=== PATIENT | female | born 1980 | race Caucasian/White ===

== ENCOUNTER → 2017-07-13 | Outpatient (CLI) | payer OTHER ==
[~2017-07-13] MED LIST: ASPI81CH PO; BIRTH CONTROL; CEPH500 PO; Esgic Tablet1 EACH PO; IBUP800 PO; LABE100 PO; LABE200 PO; NIFE30ER PO; OXYACE5T PO; Verotin-Gr Cap1 EACH PO
[2017-07-13 15:22] LABS: BASOPHILS ABSOLUTE AUTO 0.01 K/mm3 (0.00-0.23); BASOPHILS PERCENT AUTO 0 % (0-2); EOSINOPHILS PERCENT AUTO 2 % (0-6); Hematocrit 40.6 % (33.0-51.0); Hemoglobin 14.4 g/dL (11.5-16.0); IMMATURE GRAN ABSOLUTE AUTO 0.01 K/mm3 (0.00-0.10); IMMATURE GRAN PERCENT AUTO 0 % (0-1); LYMPHOCYTES ABSOLUTE AUTO 1.53 K/mm3 (0.84-5.20); LYMPHOCYTES PERCENT AUTO 28 % (21-46); MONOCYTES ABSOLUTE AUTO 0.48 K/mm3 (0.16-1.47); MONOCYTES PERCENT AUTO 9 % (4-13); Mean Corpuscular HGB 31.4 pg (26.0-34.0); Mean Corpuscular HGB Conc 35.5 g/dL (31.5-36.5); Mean Corpuscular Volume 89 fL (80-100); Mean Platelet Volume 9.9 fL (9.1-12.4); NEUTROPHILS ABSOLUTE AUTO 3.37 K/mm3 (1.96-9.15); NEUTROPHILS PERCENT AUTO 61 % (41-73); Platelet Count 248 K/mm3 (150-400); RDW Coefficient Variation 12.7 % (11.7-14.2); RDW Standard Deviation 40.9 fL (35.1-46.3); Red Blood Cell Count 4.58 M/mm3 (3.80-5.20)
[2017-07-13 15:44] LABS: Alanine Aminotransfer (ALT/SGP 23 U/L (12-78); Albumin, Blood 4.2 g/dL (3.4-5.0); Albumin/Globulin Ratio 1.2 (0.8-1.8); Alk Phos 56 U/L (40-126); Anion Gap 10 mmol/L (6-16); Aspartate Aminotrans (AST/SGOT 14 U/L (12-37); Bilirubin, Total 1.1 mg/dL (0.1-1.0); Blood Urea Nitrogen 17 mg/dL (8-24); Bun/Creatinine Ratio 18.7 (12.0-20.0); CO2, Blood 27 mmol/L (21-32); Chloride, Blood 105 mmol/L (98-108); Creatinine, Blood 0.91 mg/dL (0.40-1.00); Globulin, Blood 3.5 g/dL (2.2-4.0); Glomerular Filtration Rate >60 (60-); Glucose, Blood 105 mg/dL (70-99); Potassium, Blood 4.1 mmol/L (3.5-5.5); Sodium, Blood 142 mmol/L (136-145); Thyroid Stimulating Hormone 1.419 uIU/mL (0.360-4.800); Total Protein, Blood 7.7 g/dL (6.4-8.2)
== END ==
LOC: LAB EV 15:17 → LAB SHORT 15:17
PROVIDERS: Physician Assistant
DX: R53.83 Other fatigue (principal)
CPT/HCPCS: 80053; 84443; 85025

== ENCOUNTER 2018-07-20 11:58 | Inpatient (IN) | payer OTHER ==
[~2018-07-20] VITALS: Ht 167.6 cm; Wt 74.2 kg
[2018-07-20 12:39] LABS: BASOPHILS ABSOLUTE AUTO 0.02 K/mm3 (0.00-0.23); BASOPHILS PERCENT AUTO 0 % (0-2); EOSINOPHILS ABSOLUTE AUTO 0.07 K/mm3 (0.00-0.68); EOSINOPHILS PERCENT AUTO 1 % (0-6); Hematocrit 37.8 % (33.0-51.0); IMMATURE GRAN ABSOLUTE AUTO 0.03 K/mm3 (0.00-0.10); IMMATURE GRAN PERCENT AUTO 0 % (0-1); LYMPHOCYTES ABSOLUTE AUTO 1.34 K/mm3 (0.84-5.20); LYMPHOCYTES PERCENT AUTO 19 % (21-46); MONOCYTES ABSOLUTE AUTO 0.47 K/mm3 (0.16-1.47); MONOCYTES PERCENT AUTO 7 % (4-13); Mean Corpuscular HGB 32.3 pg (26.0-34.0); Mean Corpuscular HGB Conc 34.4 g/dL (31.5-36.5); Mean Corpuscular Volume 94 fL (80-100); Mean Platelet Volume 11.8 fL (9.1-12.4); NEUTROPHILS ABSOLUTE AUTO 5.15 K/mm3 (1.96-9.15); NEUTROPHILS PERCENT AUTO 73 % (41-73); Platelet Count 170 K/mm3 (150-400); RDW Standard Deviation 44.7 fL (35.1-46.3); Red Blood Cell Count 4.02 M/mm3 (3.80-5.20); White Blood Cell Count 7.08 K/mm3 (4.00-11.30)
[2018-07-20] MEDS ORDERED: LABE200 PO (12:55)
[2018-07-20] MEDS ORDERED: BAYER CHEWABLE81 MG PO (12:56)
[2018-07-20 13:03] LABS: Alanine Aminotransfer (ALT/SGP 17 U/L (12-78); Albumin, Blood 2.9 g/dL (3.4-5.0); Albumin/Globulin Ratio 0.8 (0.8-1.8); Alk Phos 74 U/L (50-136); Anion Gap 8 mmol/L (6-16); Aspartate Aminotrans (AST/SGOT 18 U/L (12-37); Bilirubin, Total 0.5 mg/dL (0.1-1.0); Blood Urea Nitrogen 10 mg/dL (8-24); Bun/Creatinine Ratio 15.3 (12.0-20.0); CO2, Blood 21 mmol/L (21-32); Calcium, Blood 9.2 mg/dL (8.5-10.1); Chloride, Blood 108 mmol/L (98-108); Creatinine, Blood 0.65 mg/dL (0.40-1.00); Globulin, Blood 3.7 g/dL (2.2-4.0); Glomerular Filtration Rate >60 (60-); Glucose, Blood 80 mg/dL (70-99); Potassium, Blood 4.4 mmol/L (3.5-5.5); Sodium, Blood 137 mmol/L (136-145); Total Protein, Blood 6.6 g/dL (6.4-8.2)
[2018-07-20 15:52] LABS: Protein, Urine Quantitative 54.9 mg/dL (0.0-11.9)
--- NOTE | 2018-07-20 16:07 | NUR ---
PT SLEEPING. NO COMPLAINTS. UPDATED ON LABS AND ORDER TO START STEROIDS. PT VERBALIZES UNDERSTANDING.
--- NOTE | 2018-07-20 17:14 | NUR ---
NO COMPLAINTS. SITTING UP IN BED WATCHING TV. FIRST BETAMETHASONE GIVEN. ALL QUESTIONS ANSWERED.
--- NOTE | 2018-07-20 18:57 | NUR ---
JEROMY AT BEDSIDE. NO NEW ORDERS RECEIVED.
[2018-07-21 06:14] LABS: BASOPHILS ABSOLUTE AUTO 0.01 K/mm3 (0.00-0.23); BASOPHILS PERCENT AUTO 0 % (0-2); EOSINOPHILS PERCENT AUTO 0 % (0-6); Hematocrit 37.9 % (33.0-51.0); Hemoglobin 12.9 g/dL (11.5-16.0); IMMATURE GRAN ABSOLUTE AUTO 0.06 K/mm3 (0.00-0.10); IMMATURE GRAN PERCENT AUTO 1 % (0-1); LYMPHOCYTES ABSOLUTE AUTO 1.18 K/mm3 (0.84-5.20); LYMPHOCYTES PERCENT AUTO 13 % (21-46); MONOCYTES ABSOLUTE AUTO 0.15 K/mm3 (0.16-1.47); MONOCYTES PERCENT AUTO 2 % (4-13); Mean Corpuscular HGB 31.7 pg (26.0-34.0); Mean Corpuscular Volume 93 fL (80-100); Mean Platelet Volume 11.6 fL (9.1-12.4); NEUTROPHILS ABSOLUTE AUTO 7.98 K/mm3 (1.96-9.15); NEUTROPHILS PERCENT AUTO 85 % (41-73); Platelet Count 170 K/mm3 (150-400); RDW Standard Deviation 44.1 fL (35.1-46.3); Red Blood Cell Count 4.07 M/mm3 (3.80-5.20); White Blood Cell Count 9.38 K/mm3 (4.00-11.30)
[2018-07-21 06:32] LABS: Alanine Aminotransfer (ALT/SGP 18 U/L (12-78); Albumin, Blood 2.7 g/dL (3.4-5.0); Albumin/Globulin Ratio 0.7 (0.8-1.8); Alk Phos 70 U/L (50-136); Anion Gap 13 mmol/L (6-16); Aspartate Aminotrans (AST/SGOT 16 U/L (12-37); Bilirubin, Total 0.6 mg/dL (0.1-1.0); Blood Urea Nitrogen 15 mg/dL (8-24); Bun/Creatinine Ratio 23.7 (12.0-20.0); CO2, Blood 18 mmol/L (21-32); Calcium, Blood 8.9 mg/dL (8.5-10.1); Chloride, Blood 106 mmol/L (98-108); Creatinine, Blood 0.63 mg/dL (0.40-1.00); Globulin, Blood 3.7 g/dL (2.2-4.0); Glomerular Filtration Rate >60 (60-); Glucose, Blood 108 mg/dL (70-99); Potassium, Blood 4.2 mmol/L (3.5-5.5); Sodium, Blood 137 mmol/L (136-145); Total Protein, Blood 6.4 g/dL (6.4-8.2)
--- NOTE | 2018-07-21 14:37 | NUR ---
PT WEIGHT 07/21/18 AT 0800 IS 73.6 KG
--- NOTE | 2018-07-21 20:14 | NUR ---
SANDWICH GIVEN TO PT PER RN. TRASH & DIRTY LINEN REMOVED FROM ROOM.
--- NOTE | 2018-07-22 00:30 | NUR ---
Pt given Ambien and instructed to call when she gewts up to bathroom. VS will be taken when she wakes up/ when she calls. Pt sleeping upon rounding.
[2018-07-22 06:08] LABS: BASOPHILS ABSOLUTE AUTO 0.01 K/mm3 (0.00-0.23); BASOPHILS PERCENT AUTO 0 % (0-2); EOSINOPHILS PERCENT AUTO 0 % (0-6); Hematocrit 37.2 % (33.0-51.0); Hemoglobin 12.5 g/dL (11.5-16.0); IMMATURE GRAN ABSOLUTE AUTO 0.16 K/mm3 (0.00-0.10); IMMATURE GRAN PERCENT AUTO 2 % (0-1); LYMPHOCYTES ABSOLUTE AUTO 1.29 K/mm3 (0.84-5.20); LYMPHOCYTES PERCENT AUTO 13 % (21-46); MONOCYTES ABSOLUTE AUTO 0.28 K/mm3 (0.16-1.47); MONOCYTES PERCENT AUTO 3 % (4-13); Mean Corpuscular HGB 31.6 pg (26.0-34.0); Mean Corpuscular HGB Conc 33.6 g/dL (31.5-36.5); Mean Corpuscular Volume 94 fL (80-100); Mean Platelet Volume 11.5 fL (9.1-12.4); NEUTROPHILS ABSOLUTE AUTO 7.93 K/mm3 (1.96-9.15); NEUTROPHILS PERCENT AUTO 82 % (41-73); Platelet Count 185 K/mm3 (150-400); RDW Standard Deviation 44.5 fL (35.1-46.3); Red Blood Cell Count 3.96 M/mm3 (3.80-5.20); White Blood Cell Count 9.67 K/mm3 (4.00-11.30)
[2018-07-22 06:26] LABS: Alanine Aminotransfer (ALT/SGP 17 U/L (12-78); Albumin, Blood 2.8 g/dL (3.4-5.0); Albumin/Globulin Ratio 0.8 (0.8-1.8); Alk Phos 66 U/L (50-136); Anion Gap 11 mmol/L (6-16); Aspartate Aminotrans (AST/SGOT 12 U/L (12-37); Bilirubin, Total 0.5 mg/dL (0.1-1.0); Blood Urea Nitrogen 15 mg/dL (8-24); Bun/Creatinine Ratio 23.1 (12.0-20.0); CO2, Blood 19 mmol/L (21-32); Calcium, Blood 8.8 mg/dL (8.5-10.1); Chloride, Blood 107 mmol/L (98-108); Creatinine, Blood 0.65 mg/dL (0.40-1.00); Globulin, Blood 3.4 g/dL (2.2-4.0); Glomerular Filtration Rate >60 (60-); Glucose, Blood 110 mg/dL (70-99); Potassium, Blood 4.3 mmol/L (3.5-5.5); Sodium, Blood 137 mmol/L (136-145); Total Protein, Blood 6.2 g/dL (6.4-8.2)
--- NOTE | 2018-07-22 06:37 | NUR ---
Pt. instructed to tell RN to call if she wakes up and goes to the bathroom to get BP. pt only called 1x in the night. RN rounded q2 hours with pt sleeping heavily. no breathrough labetalol needed throughout shift. Pt denies any headache throughout night or end of shift. Slept very well. RN in to get VS, and pt very droswy and sleepy while talking to RN after ambien. no complaints at end of shift. vss. intake of 930 po fluids. encouraged to drink more fluids while awake.
--- NOTE | 2018-07-22 15:22 | NUR ---
PT WAS UP TO SHOWER ABOUT 1100, LINENS CHANGED, HOUSEKEEPING IN TO CLEAN ROOM AFTER PT BACK TO BED.VITALS DONE AT 1230, THEN PT REQUESTED TO SLEEP, WILL CALL WHEN AWAKE. PT COMPLIANT WITH CARE.
--- NOTE | 2018-07-22 16:38 | NUR ---
PT CALLED AND HAD WOKE UP FROM HER NAP, C/O HEADACHE, CHEST PAIN, INDIGESTION PAIN 08/07. BP INCREASING. [facility] CNM CALLED ORDER TO CHANGE DOSING OF LABETLOL TO : 0800 (300MG), 1600 (200MG) 2000 (300MG). I HAVE ALREADY GIVEN THE BREAKTHROUGH LABETLOL 100MG, SO I WILL GIVE ANOTHER 100MG NOW. PT ON BP Q10 MIN. SP02 97 %, [facility] CNM DECLINED EKG.
--- NOTE | 2018-07-22 18:44 | NUR ---
VSS, PT RESTING. DISCUSSED NEW MEDICATION SCHEDULE, PT VERBALIZES UNDERSTANDING. REPORT TO ONCOMING SHIFT, NO ACUTE CHANGES.
--- NOTE | 2018-07-23 00:08 | NUR ---
SBAR TO Evelia DIAZ CNM REGARDING LABILE PRESSURES. CNM AWARE OF SYSTOLIC PRESSURE OVER 150 AFTER GIVING 10 MG ABIEN 2 HRS PRIOR & DIASTOLIC BEING 70S-80S. ALSO NOTIFIED OF HEART RATE @ 55 BPM. NEW ORDERS TO HOLD LABETALOL AT THIS TIME, TAKE PT OFF BP MONITORING AND HAVE PT CALL WHEN SHE GETS UP TO USE BATHROOM FOR FURTHER MONITORING/REASSESSMENT OF BP.
--- NOTE | 2018-07-23 03:17 | NUR ---
pt remains sleepig heavily at this time.
[2018-07-23 12:33] LABS: White Blood Cell Count 7.68 K/mm3 (4.00-11.30)
[2018-07-23 12:34] LABS: BASOPHILS PERCENT AUTO 0 % (0-2); EOSINOPHILS ABSOLUTE AUTO 0.01 K/mm3 (0.00-0.68); EOSINOPHILS PERCENT AUTO 0 % (0-6); IMMATURE GRAN ABSOLUTE AUTO 0.08 K/mm3 (0.00-0.10); IMMATURE GRAN PERCENT AUTO 1 % (0-1); LYMPHOCYTES ABSOLUTE AUTO 1.37 K/mm3 (0.84-5.20); LYMPHOCYTES PERCENT AUTO 18 % (21-46); MONOCYTES ABSOLUTE AUTO 0.51 K/mm3 (0.16-1.47); MONOCYTES PERCENT AUTO 7 % (4-13); Mean Corpuscular HGB 31.7 pg (26.0-34.0); Mean Corpuscular HGB Conc 33.3 g/dL (31.5-36.5); Mean Corpuscular Volume 95 fL (80-100); Mean Platelet Volume 11.7 fL (9.1-12.4); NEUTROPHILS ABSOLUTE AUTO 5.71 K/mm3 (1.96-9.15); NEUTROPHILS PERCENT AUTO 75 % (41-73); Platelet Count 179 K/mm3 (150-400); RDW Coefficient Variation 13.1 % (11.7-14.2); RDW Standard Deviation 44.7 fL (35.1-46.3); Red Blood Cell Count 3.78 M/mm3 (3.80-5.20)
[2018-07-23 12:54] LABS: Alanine Aminotransfer (ALT/SGP 21 U/L (12-78); Albumin, Blood 2.7 g/dL (3.4-5.0); Albumin/Globulin Ratio 0.8 (0.8-1.8); Alk Phos 66 U/L (50-136); Anion Gap 11 mmol/L (6-16); Aspartate Aminotrans (AST/SGOT 21 U/L (12-37); Bilirubin, Total 0.4 mg/dL (0.1-1.0); Blood Urea Nitrogen 17 mg/dL (8-24); Bun/Creatinine Ratio 24.8 (12.0-20.0); CO2, Blood 20 mmol/L (21-32); Calcium, Blood 8.5 mg/dL (8.5-10.1); Chloride, Blood 106 mmol/L (98-108); Creatinine, Blood 0.69 mg/dL (0.40-1.00); Globulin, Blood 3.4 g/dL (2.2-4.0); Glomerular Filtration Rate >60 (60-); Glucose, Blood 113 mg/dL (70-99); Potassium, Blood 3.7 mmol/L (3.5-5.5); Sodium, Blood 137 mmol/L (136-145); Total Protein, Blood 6.1 g/dL (6.4-8.2)
--- NOTE | 2018-07-23 13:23 | NUR ---
assumed care magnesium loading dose started
--- NOTE | 2018-07-23 13:47 | NUR ---
CONSENTS SIGNED FOR TRANSPORT
--- NOTE | 2018-07-23 14:06 | NUR ---
TRANSPORT TEAM HERE
== END 2018-07-23 14:20 | disposition home or self-care (01) | DRG 833 ==
LOC: BC 11:58 → OBS 11:58 → BC 12:11
PROVIDERS: Advanced Practice Midwife; ADMIT Nurse Practitioner Obstetrics & Gynecology
DX: O11.3 Pre-existing hypertension with pre-eclampsia, third trimester (principal); Z3A.34 34 weeks gestation of pregnancy; Z79.82 Long term (current) use of aspirin
CPT/HCPCS: 36415; 80053; 84156; 85025; 96372; G0378; J0610; J0702; J3360; J3475; J7120

== ENCOUNTER 2020-07-18 07:39 | Day surgery (SDC) | payer OTHER ==
[~2020-07-18] VITALS: Ht 167.6 cm; Wt 98.4 kg
[~2020-07-18 07:39] MED LIST changes: +BAYER CHEWABLE81 MG PO; +Inderal 20 mg T20 MG PO
[2020-07-18] MEDS ORDERED: LABE100 PO (08:26)
[2020-07-18] MEDS ORDERED: MULTIPLE VITAM1 EACH PO (08:26)
[2020-07-18] MEDS ORDERED: IBU800 M1 PO (08:27)
--- NOTE | 2020-07-18 10:07 | NUR ---
07/18/20 Daniele Eddy ABDOMINAL PREP COMPLETED BY [facility].NATASHA.
== END 2020-07-18 11:45 | disposition home or self-care (01) ==
LOC: ORSCSDS 07:39
PROVIDERS: Obstetrics & Gynecology
PROC: 0U5B8ZZ Destruction of Endometrium, Via Natural or Artificial Opening Endoscopic (ICD-10-PCS; principal; 2020-07-18 09:00)
PROC: 0UT74ZZ Resection of Bilateral Fallopian Tubes, Percutaneous Endoscopic Approach (ICD-10-PCS; principal; 2020-07-18 09:00)
PROC: 0UDB8ZX Extraction of Endometrium, Via Natural or Artificial Opening Endoscopic, Diagnostic (ICD-10-PCS; principal; 2020-07-18 09:00)
DX: N92.1 Excessive and frequent menstruation with irregular cycle (principal); N93.8 Other specified abnormal uterine and vaginal bleeding; N94.6 Dysmenorrhea, unspecified; Z30.2 Encounter for sterilization; N83.8 Other noninflammatory disorders of ovary, fallopian tube and broad ligament; I10 Essential (primary) hypertension; Z79.899 Other long term (current) drug therapy
CPT/HCPCS: 88302; 88305; A9270; J0171; J0690; J1100; J1885; J2405; J2704; J3010; J7120

== ENCOUNTER 2021-02-05 16:35 | Emergency (ER) | payer OTHER ==
[~2021-02-05] VITALS: Ht 167.6 cm; Wt 65.8 kg
[~2021-02-05 16:35] MED LIST changes: +IBU800 M1 PO; +MULTIPLE VITAM1 EACH PO
[2021-02-05 17:39] LABS: BASOPHILS ABSOLUTE AUTO 0.03 K/mm3 (0.00-0.23); BASOPHILS PERCENT AUTO 1 % (0-2); EOSINOPHILS PERCENT AUTO 4 % (0-6); Hematocrit 39.2 % (33.0-51.0); Hemoglobin 13.3 g/dL (11.5-16.0); IMMATURE GRAN ABSOLUTE AUTO 0.01 K/mm3 (0.00-0.10); IMMATURE GRAN PERCENT AUTO 0 % (0-1); LYMPHOCYTES ABSOLUTE AUTO 1.43 K/mm3 (0.84-5.20); LYMPHOCYTES PERCENT AUTO 31 % (21-46); MONOCYTES ABSOLUTE AUTO 0.26 K/mm3 (0.16-1.47); MONOCYTES PERCENT AUTO 6 % (4-13); Mean Corpuscular HGB 30.7 pg (26.0-34.0); Mean Corpuscular HGB Conc 33.9 g/dL (31.5-36.5); Mean Corpuscular Volume 91 fL (80-100); Mean Platelet Volume 9.7 fL (9.1-12.4); NEUTROPHILS ABSOLUTE AUTO 2.76 K/mm3 (1.96-9.15); NEUTROPHILS PERCENT AUTO 59 % (41-73); Platelet Count 251 K/mm3 (150-400); RDW Coefficient Variation 12.4 % (11.7-14.2); RDW Standard Deviation 40.8 fL (35.1-46.3); Red Blood Cell Count 4.33 M/mm3 (3.80-5.20); White Blood Cell Count 4.69 K/mm3 (4.00-11.30)
[2021-02-05 18:06] LABS: Alanine Aminotransfer (ALT/SGP 21 U/L (12-78); Albumin, Blood 4.2 g/dL (3.4-5.0); Albumin/Globulin Ratio 1.3 (0.8-1.8); Alk Phos 44 U/L (50-136); Anion Gap 4 mmol/L (6-16); Aspartate Aminotrans (AST/SGOT 14 U/L (12-37); Bilirubin, Total 0.8 mg/dL (0.1-1.0); Blood Urea Nitrogen 13 mg/dL (8-24); Bun/Creatinine Ratio 17.9 (12.0-20.0); CO2, Blood 26 mmol/L (21-32); Calcium, Blood 8.8 mg/dL (8.5-10.1); Chloride, Blood 110 mmol/L (98-108); Creatinine, Blood 0.73 mg/dL (0.40-1.00); Globulin, Blood 3.2 g/dL (2.2-4.0); Glomerular Filtration Rate >60 (60-); Glucose, Blood 96 mg/dL (70-99); Potassium, Blood 3.8 mmol/L (3.5-5.5); Sodium, Blood 140 mmol/L (136-145); Total Protein, Blood 7.4 g/dL (6.4-8.2)
[2021-02-05] MEDS ORDERED: CYCL10 PO (20:16)
[2021-02-05] MEDS ORDERED: LIDO700A20 TOP (20:16)
== END 2021-02-05 20:34 | disposition home or self-care (01) ==
LOC: ER 16:35
PROVIDERS: Physician Assistant
DX: R51.9 Headache, unspecified (principal); M54.2 Cervicalgia; I10 Essential (primary) hypertension; D64.9 Anemia, unspecified; Z88.8 Allergy status to other drugs, medicaments and biological substances; Z79.899 Other long term (current) drug therapy
CPT/HCPCS: 36415; 70450; 72125; 80053; 85025; 93005; 93010; 99284-25; A9270

== ENCOUNTER 2023-12-08 06:43 | Day surgery (SDC) | payer OTHER ==
[2023-12-08] VITALS (13 sets, daily range): BP systolic 127–148; BP diastolic 81–103
[~2023-12-08] VITALS: Ht 167.6 cm; Wt 66.6 kg
[~2023-12-08 06:43] MED LIST changes: +CYCL10 PO; +LIDO700A20 TOP
[2023-12-08] MEDS ORDERED: CeFAZolin Sodium 2,000 MG in NS 100 ML IV SCH ×2 (06:45→16:00)
[2023-12-08] MEDS ORDERED: Lactated Ringer's 1,000 ML IV SCH ×2 (06:45→11:10)
[2023-12-08] MEDS ORDERED: OLME5TAB PO (07:11)
[2023-12-08] MEDS ORDERED: propofoL 20 ML IV ONE (07:42)
[2023-12-08] MEDS ORDERED: FentaNYL Citrate 50 MCG/ML 2 ML Injection ONE ×2 (07:42→11:36)
[2023-12-08] MEDS ORDERED: Sugammadex Sodium 200 MG/2ML SDV (100 MG/ML) ONE (07:43)
[2023-12-08] MEDS ORDERED: Rocuronium Bromide 10 MG/ML 5ML Injection IV ONE ×2 (07:43→09:16)
[2023-12-08] MEDS ORDERED: Ondansetron HCl 2 MG / ML 2ML Vial ONE (07:43)
[2023-12-08] MEDS ORDERED: Lidocaine HCl 2% 20 ML MDV ONE (07:43)
[2023-12-08] MEDS ORDERED: Dexamethasone Sod Phos 10 MG/ML 1ML VIAL ONE (07:43)
[2023-12-08] MEDS ORDERED: Bupivacaine 0.5% HCl 5 MG/ML 30MLVIAL ONE (07:54)
[2023-12-08] MEDS ORDERED: Midazolam HCl 1MG / ML 2ML Vial IV ONE (07:55)
[2023-12-08] MEDS ORDERED: Scopolamine Hydrobromide Patch TOP ONE (07:55)
[2023-12-08] MEDS ORDERED: Midazolam HCl 1MG / ML 2ML Vial ONE (08:01)
[2023-12-08] MEDS ORDERED: Scopolamine Hydrobromide Patch ONE (08:01)
[2023-12-08] MEDS ORDERED: Ketorolac Tromethamine 30mg Vial ONE (09:17)
[2023-12-08] MEDS ORDERED: HYDROmorphone HCl/Pf 1MG SYR ONE (09:56)
[2023-12-08] MEDS ORDERED: Cyclobenzaprine HCl 10 MG Tab PO PRN (11:00)
[2023-12-08] MEDS ORDERED: Ondansetron HCl 2 MG / ML 2ML Vial IV PRN (11:10)
[2023-12-08] MEDS ORDERED: Promethazine HCl 25 MG Tab PO PRN (11:15)
[2023-12-08] MEDS ORDERED: Simethicone 80 MG Chew PO PRN (11:15)
[2023-12-08] MEDS ORDERED: Promethazine HCl 12.5 MG Supp PR PRN (11:15)
[2023-12-08] MEDS ORDERED: OxyCODONE 5 mg/Acetamin 325 mg TABLET PO PRN (11:15)
[2023-12-08] MEDS ORDERED: Naloxone HCl 0.4MG / ML 1ML Vial IV PRN (11:15)
[2023-12-08] MEDS ORDERED: HYDROmorphone HCl/Pf 1MG SYR IV PRN (11:15)
[2023-12-08] MEDS ORDERED: Ondansetron 4 MG TAB PO PRN (11:15)
[2023-12-08] MEDS ORDERED: FLU VACC TS2024-25(6MOS UP)/PF 45 MCG/0.5 ML SYRINGE IM ONE (11:15)
[2023-12-08] MEDS ORDERED: Ketorolac Tromethamine 30mg Vial IV PRN (11:35)
--- NOTE | 2023-12-08 14:40 | NUR ---
rept to Aisha surgical assistant certified floor nurse
--- NOTE | 2023-12-08 15:27 | NUR ---
PT ARRIVED TO RM 226 AT APPROXIMATELY 1515. PAIN MANAGED AT THIS TIME. INCISION SITES WNL.
[2023-12-08] MEDS ORDERED: Percocet 5-3251 EACH PO (17:25)
[2023-12-08] MEDS ORDERED: PROM25 PO (17:26)
[2023-12-08] MEDS ORDERED: SIME80CH PO (17:28)
--- NOTE | 2023-12-08 18:15 | NUR ---
SHIFT SUMMARY PT IS POD#0 FROM [facility] WITH DR. RAYGOZA. PAIN HAS BEEN DIFFICULT TO MANAGE. PT REPORTS PERCOCET AND TORADOL HAVE NOT BEEN EFFECTIVE FOR PAIN, PT RATED HER PAIN AT 6-7/10 BEFORE PERCOCET AND TORADOL; 1 HOUR AFTER ADMINISTRATION PAIN WAS SLIGHTLY INCREASED, PT RATED PAIN AT 7/10. DILAUDID HAS BEEN EFFECTIVE FOR PAIN MANAGEMENT. PT HAS BEEN ABLE TO VOID, TOLERATE PO, AND AMBULATE. VSS. PT USES CALL LIGHT APPROPRIATELY. ABD BINDER IN PLACE FOR COMFORT. PT RESTING IN BED AT THIS TIME.
[2023-12-09 00:07] VITALS: BP 118/76
[2023-12-09 05:53] VITALS: BP 106/77
--- NOTE | 2023-12-09 06:42 | NUR ---
SHIFT SUMMARY VSS, UP TO BR WITH JUST STANDBY ASSIST. DID NOT REQUIRE ANY IV PAIN MEDS. VOIDING. EATING REGULAR DIET.
[2023-12-09 07:38] VITALS: BP 124/86
[2023-12-09 08:47] LABS: BASOPHILS ABSOLUTE AUTO 0.01 K/mm3 (0.00-0.23); BASOPHILS PERCENT AUTO 0 % (0-2); EOSINOPHILS ABSOLUTE AUTO 0.04 K/mm3 (0.00-0.68); EOSINOPHILS PERCENT AUTO 1 % (0-6); Hematocrit 37.2 % (33.0-51.0); Hemoglobin 12.8 g/dL (11.5-16.0); IMMATURE GRAN ABSOLUTE AUTO 0.01 K/mm3 (0.00-0.10); IMMATURE GRAN PERCENT AUTO 0 % (0-1); LYMPHOCYTES ABSOLUTE AUTO 1.75 K/mm3 (0.84-5.20); LYMPHOCYTES PERCENT AUTO 26 % (21-46); MONOCYTES ABSOLUTE AUTO 0.47 K/mm3 (0.16-1.47); MONOCYTES PERCENT AUTO 7 % (4-13); Mean Corpuscular HGB 30.7 pg (26.0-34.0); Mean Corpuscular HGB Conc 34.4 g/dL (31.5-36.5); Mean Corpuscular Volume 89 fL (80-100); Mean Platelet Volume 9.7 fL (9.1-12.4); NEUTROPHILS ABSOLUTE AUTO 4.59 K/mm3 (1.96-9.15); NEUTROPHILS PERCENT AUTO 67 % (41-73); Platelet Count 178 K/mm3 (150-400); RDW Coefficient Variation 12.7 % (11.7-14.2); RDW Standard Deviation 41.5 fL (35.1-46.3); Red Blood Cell Count 4.17 M/mm3 (3.80-5.20); White Blood Cell Count 6.87 K/mm3 (4.00-11.30)
[2023-12-09] MEDS ORDERED: Losartan Potassium 25 MG Tab PO SCH (09:00)
--- NOTE | 2023-12-09 10:41 | NUR ---
DISCHARGE HOME PT EDUCATED ON AND RECEIVED PRINTED DC INSTRUCTIONS AND VERB AN UNDERSTANDING. IV DC'D. PT VERB FILLING RX PRIOR TO ADMISSION. PT LEFT WITH ALL PERSONAL BELONGINGS.
== END 2023-12-09 10:30 | disposition home or self-care (01) ==
LOC: ORSCMMR 06:43 → ORD 08:00 → BC 12:34 → SURS 15:01 → ORSCMMR 12-09 10:30
PROVIDERS: Obstetrics & Gynecology
PROC: 0U5F4ZZ Destruction of Cul-de-sac, Percutaneous Endoscopic Approach (ICD-10-PCS; principal; 2023-12-08 08:00)
PROC: 0UT9FZZ Resection of Uterus, Via Natural or Artificial Opening With Percutaneous Endoscopic Assistance (ICD-10-PCS; principal; 2023-12-08 08:00)
DX: N80.30 Endometriosis of pelvic peritoneum, unspecified (principal); N99.85 Post endometrial ablation syndrome; N94.6 Dysmenorrhea, unspecified; N94.12 Deep dyspareunia; R10.2 Pelvic and perineal pain; N80.03 Adenomyosis of the uterus; D25.9 Leiomyoma of uterus, unspecified; K66.0 Peritoneal adhesions (postprocedural) (postinfection); I10 Essential (primary) hypertension; F41.9 Anxiety disorder, unspecified; F32.A Depression, unspecified; Z79.899 Other long term (current) drug therapy
CPT/HCPCS: 36415; 85025; 86850; 86900; 86901; 88305; 88307; 94762; A9270; J0690; J1100; J1170; J1171; J1885; J2250; J2405; J2704; J3010; J7120